=== PATIENT | female | born 1975 ===

== ENCOUNTER 2018-03-01 11:40 | Emergency (ER) | payer MEDICAID ==
[2018-03-01 13:07] VITALS: BMI 27.8
[2018-03-06 20:07] VITALS: BP 99/56; PULSE 70; RESP 18; TEMP 97.8; O2SAT 99
== END 2018-03-01 13:30 | disposition home or self-care (01) ==
LOC: C.EROB 11:40
DX: O26.893 Other specified pregnancy related conditions, third trimester (principal); Z3A.38 38 weeks gestation of pregnancy